=== PATIENT | female | born 1960 | race Caucasian/White ===

== ENCOUNTER → 2018-05-06 14:04 | Outpatient (CLI) | payer OTHER, SELFPAY ==
--- NOTE | 2018-05-06 | DI.RAD.S_ITS ---
PROCEDURE: XR SHOULDER RT MIN 2V INDICATIONS: RIGHT SHOULDER CHRONIC PAIN TECHNIQUE: 3 views of the shoulder were acquired. COMPARISON: None. FINDINGS: Bones: No fractures or dislocations. No suspicious bony lesions. Visualized ribs appear intact. Soft tissues: No suspicious soft tissue calcifications. IMPRESSION: Mild a.c. joint osteoarthritis. Dictated by: Reji Merida M.D. on 05/06/2018 at 14:47 Approved by: Reji Merida M.D. on 05/06/2018 at 14:47
== END ==
PROVIDERS: PCP Nurse Practitioner Family; Visit Provider Nurse Practitioner Family
DX: M25.511 Pain in right shoulder (principal); M19.011 Primary osteoarthritis, right shoulder; G89.29 Other chronic pain
CPT/HCPCS: 73030

== ENCOUNTER → 2018-11-17 16:20 | Outpatient (CLI) | payer OTHER, SELFPAY ==
--- NOTE | 2018-11-17 | DI.MG.S_ITS ---
BILATERAL DIGITAL SCREENING MAMMOGRAM 3D/2D WITH CAD: 11/17/2018 CLINICAL: Routine screening. Comparison is made to exams dated: 12/18/2016 mammogram, 12/11/2016 mammogram, and 10/02/2015 mammogram - [facility]. The tissue of both breasts is extremely dense, which lowers the sensitivity of mammography. Current study was also evaluated with a Computer Aided Detection (CAD) system. No significant masses, calcifications, or other findings are seen in either breast. There has been no significant interval change. IMPRESSION: NEGATIVE There is no mammographic evidence of malignancy. A 1 year screening mammogram is recommended. This exam was interpreted at Station ID: [id number]. NOTE: For mammograms, a report in lay terms will be sent to the patient. Approximately 15% of breast malignancies will not be visualized mammographically. In the management of a palpable breast mass, a negative mammogram must not discourage biopsy of a clinically suspicious lesion. Electronically Signed By: Favian ann/raghav:11/17/2018 19:14:42 letter sent: Normal Exam ACR BI-RADS Category 1: Negative 3341F
== END ==
PROVIDERS: PCP Nurse Practitioner Family; Visit Provider Nurse Practitioner Family
DX: Z12.31 Encounter for screening mammogram for malignant neoplasm of breast (principal)
CPT/HCPCS: 77063; 77067

== ENCOUNTER → 2019-12-16 11:13 | Outpatient (CLI) | payer OTHER, SELFPAY ==
--- NOTE | 2019-12-16 | DI.US.S_ITS ---
PROCEDURE: US PELVIC COMPLETE INDICATIONS: POST MENOPAUSAL BLEEDING TECHNIQUE: Real-time scanning was performed of the pelvic organs, with image documentation. Additional endovaginal scanning was necessary due to incomplete visualization of the adnexal and endometrial structures by transabdominal scanning. COMPARISON: [facility], , PELVIC COMPLETE, 09/08/2015, 12:38. FINDINGS: Transabdominal scanning: Limited scanning through the kidneys shows no hydronephrosis. No pathologic free abdominal or pelvic fluid. Endovaginal scanning: Uterus: Uterus is normal in size at 8.6 x 4.2 x 5.5 cm. The endometrium measures 6 mm in combined thickness. Hypoechoic uterine lesions are seen, which are attributed to fibroids. They measure as follows: Left posterior uterus, exophytic, 3.9 x 3 x 3.2 cm Left anterior uterus, intramural, 2.7 x 2.5 x 2.3 cm Right posterior uterus, 1.6 x 1.3 x 1.8 cm Ovaries: The right ovary measures 1.4 x 1.1 x 1 cm. The left ovary measures 1.9 x 1 by 1.2 cm. The ovaries have a normal sonographic appearance. No adnexal masses are seen. IMPRESSION: The endometrial stripe is thickened in this patient with a given history of postmenopausal bleeding. Differential diagnosis includes endometrial neoplasm and endometrial hyperplasia. Recommend correlation with endometrial histology, if clinically appropriate. Numerous uterine fibroids are also seen. Dictated by: Haroon Zavaleta M.D. on 12/16/2019 at 11:58 Approved by: Haroon Zavaleta M.D. on 12/16/2019 at 12:00
== END ==
PROVIDERS: PCP Internal Medicine; Referring Provider Internal Medicine; Visit Provider Internal Medicine
DX: N95.0 Postmenopausal bleeding (principal); D25.1 Intramural leiomyoma of uterus; D25.9 Leiomyoma of uterus, unspecified; R93.89 Abnormal findings on diagnostic imaging of other specified body structures
CPT/HCPCS: 76856

== ENCOUNTER → 2020-02-25 13:10 | Outpatient (CLI) | payer OTHER, SELFPAY | PROVIDERS: PCP Internal Medicine; Referring Provider Internal Medicine; Visit Provider Internal Medicine | DX: Z78.0 Asymptomatic menopausal state (principal) | CPT/HCPCS: 77080 ==

== ENCOUNTER → 2020-10-21 08:56 | Outpatient (CLI) | payer OTHER, SELFPAY ==
--- NOTE | 2020-10-21 08:58 | DI.MG.S_ITS ---
BILATERAL DIGITAL SCREENING MAMMOGRAM 3D/2D WITH CAD: 10/21/2020 CLINICAL: Routine screening. Comparison is made to exams dated: 11/17/2018 mammogram, 12/11/2016 mammogram, and 10/02/2015 mammogram - [facility]. The tissue of both breasts is extremely dense, which lowers the sensitivity of mammography. Current study was also evaluated with a Computer Aided Detection (CAD) system. No significant masses, calcifications, or other findings are seen in either breast. There has been no significant interval change. IMPRESSION: NEGATIVE There is no mammographic evidence of malignancy. A 1 year screening mammogram is recommended. This exam was interpreted at Station ID: [id number]. NOTE: For mammograms, a report in lay terms will be sent to the patient. Approximately 15% of breast malignancies will not be visualized mammographically. In the management of a palpable breast mass, a negative mammogram must not discourage biopsy of a clinically suspicious lesion. Electronically Signed By: Toño calloway/raghav:10/23/2020 09:00:21 letter sent: Normal Exam ACR BI-RADS Category 1: Negative 3341F
== END ==
PROVIDERS: PCP Internal Medicine; Referring Provider Internal Medicine; Visit Provider Internal Medicine
DX: Z12.31 Encounter for screening mammogram for malignant neoplasm of breast (principal)
CPT/HCPCS: 77063; 77067

== ENCOUNTER → 2021-10-20 11:00 | Outpatient (CLI) | payer OTHER, SELFPAY | PROVIDERS: PCP Internal Medicine; Referring Provider Internal Medicine; Visit Provider Internal Medicine | DX: Z53.20 Procedure and treatment not carried out because of patient's decision for unspecified reasons (principal) ==

== ENCOUNTER → 2021-11-01 15:25 | Outpatient (CLI) | payer OTHER, SELFPAY ==
--- NOTE | 2021-11-01 | DI.MG.S_ITS ---
BILATERAL DIGITAL SCREENING MAMMOGRAM 3D/2D WITH CAD: 11/01/2021 CLINICAL: Routine screening. Comparison is made to exams dated: 11/17/2018 mammogram, 12/18/2016 mammogram, and 10/21/2020 mammogram - [facility]. The tissue of both breasts is extremely dense, which lowers the sensitivity of mammography. Current study was also evaluated with a Computer Aided Detection (CAD) system. No significant masses, calcifications, or other findings are seen in either breast. There has been no significant interval change. IMPRESSION: NEGATIVE There is no mammographic evidence of malignancy. A 1 year screening mammogram is recommended. This exam was interpreted at Station ID: [id number]. NOTE: For mammograms, a report in lay terms will be sent to the patient. Approximately 15% of breast malignancies will not be visualized mammographically. In the management of a palpable breast mass, a negative mammogram must not discourage biopsy of a clinically suspicious lesion. Electronically Signed By: Sonia molina/raghav:11/02/2021 12:29:07 letter sent: Normal Exam ACR BI-RADS Category 1: Negative 3341F
== END ==
PROVIDERS: PCP Internal Medicine; Referring Provider Internal Medicine; Visit Provider Internal Medicine
DX: Z12.31 Encounter for screening mammogram for malignant neoplasm of breast (principal)
CPT/HCPCS: 77063; 77067

== ENCOUNTER → 2021-11-23 12:17 | Outpatient (CLI) | payer OTHER, SELFPAY ==
--- NOTE | 2021-11-23 | DI.CT.S_ITS ---
PROCEDURE: CT ABDOMEN PANCREATIC PROTOCOL INDICATIONS: Epigastric pain TECHNIQUE: After the administration of intravenous contrast, 3 mm thick pancreatic-phase images acquired from the diaphragm to the iliac crests. 3 mm thick coronal and sagittal reformats were performed. For radiation dose reduction, the following was used: automated exposure control, adjustment of mA and/or kV according to patient size. COMPARISON: None. FINDINGS: Image quality: Excellent. Lung bases: Lung bases are clear. Heart size is normal. Pancreas: The pancreas is normal size with a smooth margin and homogeneous enhancement. There are no peripancreatic inflammatory changes. There is a 1.1 cm exophytic cyst arising from the dorsal uncinate process with probable connection to pancreatic ductal side branch. There is no internal or peripheral enhancement. No associated calcification. Other solid organs: The liver contains enhancing masses in both lobes. The largest in the right hepatic lobe is at the caudal margin of segment V measuring 5.2 x 3.1 x 4.9 cm. The largest in the left hepatic lobe in segment II measures 3.2 x 2.3 x 2.0 cm. Other smaller homogeneous arterially enhancing masses are present. Other enhancing masses with peripheral wispy enhancement are seen. Overall the majority has morphology suggestive of cavernous and flash fill hemangiomas, less likely focal nodular hyperplasia. No suspicious targetoid masses. The gallbladder is absent. Trace intrahepatic biliary dilatation and mild extrahepatic biliary prominence, expected post cholecystectomy. There is an exophytic cyst arising from the posterior lower pole of the spleen measuring 1.1 cm. The adrenal glands and kidneys are normal. Peritoneum and bowel: The stomach contains ingested hypodense fluid. The gastric antrum shows mucosal enhancement and circumferential moderate wall thickening. No perigastric inflammation. Probable mucosal enhancement versus high-density ingested material within the gastric antrum. The visible loops of colon and small bowel demonstrate signs of stasis. No visible free air or free fluid. Nodes and vessels: No retroperitoneal or mesenteric adenopathy by size criteria. Aorta and inferior vena cava are normal in size. Bones: No suspicious bony lesions. No vertebral body compression fractures. Miscellaneous: No ventral hernias. IMPRESSION: 1. Gastric antral wall thickening and probable mucosal hyperenhancement suggesting gastritis and/or peptic ulcer disease. 2. Normal pancreas aside from 1.1 cm partially exophytic uncinate process cyst. This is potentially a small IPMN or epithelial cyst. One year follow-up is recommended. 3. Several enhancing hepatic masses ranging from subcentimeter to 5.2 cm in size. Findings are most suggestive of benign lesions such as hemangiomas or less likely focal nodular hyperplasia. Dictated by: Isela Henry M.D. on 11/23/2021 at 15:26 Approved by: Isela Henry M.D. on 11/23/2021 at 15:50
== END ==
PROVIDERS: PCP Internal Medicine; Referring Provider Internal Medicine; Visit Provider Internal Medicine
DX: K86.2 Cyst of pancreas (principal); R10.13 Epigastric pain; R74.8 Abnormal levels of other serum enzymes; R16.0 Hepatomegaly, not elsewhere classified
CPT/HCPCS: 74160; Q9967

== ENCOUNTER → 2022-11-04 11:11 | Outpatient (CLI) | payer OTHER, SELFPAY ==
--- NOTE | 2022-11-04 | DI.MG.S_ITS ---
BILATERAL DIGITAL SCREENING MAMMOGRAM 3D/2D WITH CAD: 11/04/2022 CLINICAL: Routine screening. Comparison is made to exams dated: 11/01/2021 mammogram, 11/17/2018 mammogram, and 10/21/2020 mammogram - [facility]. Both breasts are extremely dense, which lowers the sensitivity of mammography (category d />75% glandular tissue). Current study was also evaluated with a Computer Aided Detection (CAD) system. No significant masses, calcifications, or other findings are seen in either breast. There has been no significant interval change. IMPRESSION: NEGATIVE There is no mammographic evidence of malignancy. A 1 year screening mammogram is recommended. Based on the Tyrer Cuzick model (a risk assessment model) the patient's lifetime risk is 17.3% and her 10 year risk is 7.2%. According to the ACR, ACS, and NCCN guidelines, an annual breast MRI exam along with mammogram is recommended if the patient's lifetime risk is 20% or greater. This exam was interpreted at Station ID: [id number]. NOTE: For mammograms, a report in lay terms will be sent to the patient. Approximately 15% of breast malignancies will not be visualized mammographically. In the management of a palpable breast mass, a negative mammogram must not discourage biopsy of a clinically suspicious lesion. Electronically Signed By: Emanuel gibson/raghav:11/04/2022 12:35:25 letter sent: Normal Exam ACR BI-RADS Category 1: Negative 3341F
== END ==
PROVIDERS: PCP Internal Medicine; Referring Provider Internal Medicine; Visit Provider Internal Medicine
DX: Z12.31 Encounter for screening mammogram for malignant neoplasm of breast (principal)
CPT/HCPCS: 77063; 77067

== ENCOUNTER → 2024-02-18 14:19 | Outpatient (CLI) | payer OTHER, SELFPAY ==
--- NOTE | 2024-02-18 14:20 | DI.MG.S_ITS ---
BILATERAL DIGITAL SCREENING MAMMOGRAM 3D/2D WITH CAD: 02/18/2024 CLINICAL: Routine screening. Comparison is made to exams dated: 11/04/2022 mammogram, 11/01/2021 mammogram, 10/21/2020 mammogram, 11/17/2018 mammogram, and 12/18/2016 mammogram - [facility]. The breasts are heterogeneously dense, which may obscure small masses (category c / 51-75% glandular tissue). Current study was also evaluated with a Computer Aided Detection (CAD) system. No significant masses, calcifications, or other findings are seen in either breast. There has been no significant interval change. IMPRESSION: NEGATIVE There is no mammographic evidence of malignancy. A 1 year screening mammogram is recommended. Based on the Tyrer Cuzick model (a risk assessment model) the patient's lifetime risk is 11.4% and her 10 year risk is 4.8%. According to the ACR, ACS, and NCCN guidelines, an annual breast MRI exam along with mammogram is recommended if the patient's lifetime risk is 20% or greater. This exam was interpreted at Station ID: [id number]. NOTE: For mammograms, a report in lay terms will be sent to the patient. Approximately 15% of breast malignancies will not be visualized mammographically. In the management of a palpable breast mass, a negative mammogram must not discourage biopsy of a clinically suspicious lesion. Electronically Signed By: Karyn Magallanes M.D., Ph.D. maureen/raghav:02/19/2024 08:50:37 letter sent: Normal Exam ACR BI-RADS Category 1: Negative
== END ==
PROVIDERS: PCP Internal Medicine; Referring Provider Internal Medicine; Visit Provider Internal Medicine
DX: Z12.31 Encounter for screening mammogram for malignant neoplasm of breast (principal); R92.333 Mammographic heterogeneous density, bilateral breasts
CPT/HCPCS: 77063; 77067

== ENCOUNTER → 2024-02-18 14:21 | Outpatient (CLI) | payer OTHER, SELFPAY ==
--- NOTE | 2024-02-18 14:22 | DI.CT.S_ITS ---
PROCEDURE: CT ABDOMEN PANCREATIC PROTOCOL INDICATIONS: ELEV LIPASE,PANCREATIC CYST TECHNIQUE: Both before and after the administration of intravenous contrast, 3 mm thick pancreatic-phase images acquired from the diaphragm to the iliac crests. 3 mm thick coronal and sagittal reformats were performed. For radiation dose reduction, the following was used: automated exposure control, adjustment of mA and/or kV according to patient size. COMPARISON: [facility], CT, CT ABDOMEN PANCREATIC PROTOCOL, 11/23/2021, 12:47. FINDINGS: Image quality: Diagnostic. Lower chest: Unremarkable. ABDOMEN: Pancreas: No solid mass. No ductal dilation. There is a tiny partially exophytic cyst with an imperceptible wall arising from the dorsal aspect of the mass measuring 0.7 cm. The pancreas is otherwise normal. Liver: Several arterially enhancing liver lesions, the largest in the right inferior segment five measuring 5.5 cm peer the larger ones demonstrate peripheral nodular arterial enhancement and partial wash-in on delayed/venous imaging, and the smaller lesions appear to follow blood pool. There is a background of moderate hepatic steatosis Gallbladder: Absent Biliary ducts: No biliary dilation. Adrenal Glands: No nodules. Spleen: Size is within normal limits. Stable tiny benign appearing lower pole posterior subcapsular cyst. Kidneys and Ureters: Symmetric enhancement. No hydronephrosis. No hydroureter. Punctate nonobstructing right midpole stone. No suspicious enhancing mass. Stomach and Bowel: There is marked wall thickening of the gastric antrum circumferentially, diffuse gastric mucosal hyperemia, and morphology of a possible ulcer arising from the antrum towards the lesser curvature. No perigastric inflammation or extraluminal gas. Visible bowel loops are otherwise normal. Peritoneum: No abnormal intraperitoneal fluid. No free air. Ventral Wall: No hernia. Abdominal Nodes: No retroperitoneal or mesenteric adenopathy by size criteria. Vessels: The abdominal aorta, IVC, and portal vein are of normal caliber. Bones: No aggressive osseous abnormality. IMPRESSION: Decreasing size of pancreatic cyst in the uncinate process, possibly side-branch IPMN versus epithelial cyst. Continued imaging follow-up is recommended in one year. Findings of chronic distal gastric inflammation and probable gastric ulceration. Multiple hepatic lesions without significant size change. Characteristics are most consistent with cavernous hemangiomas. Dictated by: Isela Henry M.D. on 02/18/2024 at 23:47 Approved by: Isela Henry M.D. on 02/19/2024 at 0:00
== END ==
PROVIDERS: PCP Internal Medicine; Referring Provider Internal Medicine; Visit Provider Internal Medicine
DX: K86.2 Cyst of pancreas (principal); K76.9 Liver disease, unspecified; K29.50 Unspecified chronic gastritis without bleeding; N20.0 Calculus of kidney; R74.8 Abnormal levels of other serum enzymes; Z90.49 Acquired absence of other specified parts of digestive tract
CPT/HCPCS: 74170; Q9967

== ENCOUNTER → 2025-03-05 11:52 | Outpatient (CLI) | payer OTHER, SELFPAY ==
--- NOTE | 2025-03-05 11:54 | DI.CT.S_ITS ---
PROCEDURE: CT ABDOMEN PANCREATIC PROTOCOL INDICATIONS: screening TECHNIQUE: Both before and after the administration of intravenous contrast, 3 mm thick pancreatic-phase images acquired from the diaphragm to the iliac crests. 3 mm thick coronal and sagittal reformats were performed. For radiation dose reduction, the following was used: automated exposure control, adjustment of mA and/or kV according to patient size. COMPARISON: [facility], CT, CT ABDOMEN PANCREATIC PROTOCOL, 02/18/2024, 15:33. FINDINGS: Image quality: Diagnostic. Lower chest: Unremarkable. ABDOMEN: Pancreas: No solid mass. No ductal dilation. Stable 7 millimeter hypoattenuating lesion off the posterior margin (series 5, image 47). No definite connection to the pancreatic duct. Liver: Stable liver lesions which are most compatible with benign hemangiomas. Largest measures 5 centimeter in segment 5. Gallbladder: Contracted. Biliary ducts: No biliary dilation. Adrenal Glands: No nodules. Spleen: Size is within normal limits. Kidneys and Ureters: No hydronephrosis. No solid mass. No complex renal cystic lesion which requires follow up. Stomach and Bowel: Normal colonic caliber, without significant wall thickening. Peritoneum: No abnormal intraperitoneal fluid. No free air. Ventral Wall: No hernia. Abdominal Nodes: No retroperitoneal or mesenteric adenopathy by size criteria. Vessels: Aorta and inferior vena cava are normal in size. Bones: No aggressive osseous abnormality. IMPRESSION: Stable pancreatic cystic lesion measuring 7 millimeters. No definite connection to the pancreatic duct. Continued yearly surveillance for a total of 5 years followed by q2 years 2x. Stable presumed liver hemangiomas. Dictated by: Fernando Walker M.D. on 03/05/2025 at 13:26 Approved by: Fernando Walker M.D. on 03/05/2025 at 13:30
--- NOTE | 2025-03-05 11:54 | DI.MG.S_ITS ---
MM screening mammo BI: 03/05/2025. BI-RADS: 1 CLINICAL: 64-year old female for bilateral screening mammogram. Tyrer-Cuzick lifetime risk of 8.2%. No personal or first-degree family history of breast cancer. PRIOR EXAMS 02/18/2024, 11/04/2022, 11/01/2021, 10/21/2020, MAMMOGRAPHY TECHNIQUE: 2D and 3D (tomosynthesis) digital mammographic views obtained, with additional images as needed for full coverage. Current study was also evaluated with a Computer Aided Detection (CAD) system. DENSITY C. The breasts are heterogeneously dense, which may obscure small masses. MAMMOGRAPHY FINDINGS Bilateral: No suspicious mass, asymmetry, microcalcification, or other abnormality seen. IMPRESSION: * No evidence of malignancy. RECOMMENDATIONS Bilateral * Annual screening mammography. OVERALL ASSESSMENT CATEGORY BI-RADS-1: Negative. The [employer] recommends annual screening mammography beginning at age 40 for women with average risk of breast cancer. ELECTRONICALLY SIGNED: Jean Lucio M.D. on 03/07/2025 at 10:12:16 AM PT Interpreting Station ID: [id number]
== END ==
LOC: MAMMO 11:53
PROVIDERS: PCP Registered Nurse; Referring Provider Registered Nurse; Visit Provider Registered Nurse
DX: Z12.31 Encounter for screening mammogram for malignant neoplasm of breast (principal); R74.8 Abnormal levels of other serum enzymes; K86.2 Cyst of pancreas; K76.9 Liver disease, unspecified; K86.9 Disease of pancreas, unspecified; R92.333 Mammographic heterogeneous density, bilateral breasts
CPT/HCPCS: 74170; 77063; 77067; Q9967